=== PATIENT | female | born 1985 | race African-American/Black ===

== ENCOUNTER 2019-08-02 00:39 | Emergency (ER) | payer MEDICAID, OTHER ==
[~2019-08-02] VITALS: Ht 154.9 cm; Wt 111.7 kg
[2019-08-02] MEDS ORDERED: VISCOUS LIDOCAINE 2% 15 ML UDC PO STA (01:40)
[2019-08-02] MEDS ORDERED: MAGNESIUM/ALUMINUM HYDROXIDE/SIMETHICONE 30ML UDC PO STA (01:40)
[2019-08-02 03:17] LABS: BASOPHILS % 1.3 % (0.0-2.0); EOSINOPHILS % 5.9 % (0.0-5.0); HEMOGLOBIN. 11.8 g/dL (12.0-16.0); LYMPHOCYTES % 43.4 % (20.0-50.0); MEAN CORPUSCULAR HEMOGLOBIN 28.2 pg (28.0-32.0); MEAN CORPUSCULAR VOLUME 83.5 fL (81.0-99.0); MEAN PLATELET VOLUME 8.6 fl (7.4-10.4); MONOCYTES % 6.4 % (2.0-8.0); PLATELET 220 x1000/uL (130-400); RED BLOOD CELL COUNT 4.19 mill/uL (4.2-5.4); RED CELL DISTRIBUTION WIDTH 15.4 % (11.6-14.6)
[2019-08-02 03:23] LABS: CHLORIDE 108 mEq/L (98-107)
[2019-08-02 03:36] LABS: CLARITY URINE CLOUDY (CLEAR); COLOR URINE YELLOW (YELLOW); KETONES URINE NEGATIVE (NEGATIVE); LEUKOCYTE ESTERASE URINE NEGATIVE (NEGATIVE); NITRITE URINE NEGATIVE (NEGATIVE); OCCULT BLOOD URINE 3+ (NEGATIVE); PH URINE 5.5 (4.5-8.0); PROTEIN URINE NEGATIVE (NEGATIVE); SPECIFIC GRAVITY URINE 1.012 (1.005-1.030); UROBILINOGEN URINE 0.2 E.U./dL (0.2-1.0)
[2019-08-02 04:54] VITALS: BP 119/69
== END 2019-08-02 04:55 | disposition home or self-care (01) ==
LOC: ER 00:39
DX: G89.29 Other chronic pain (principal); R10.9 Unspecified abdominal pain; E66.9 Obesity, unspecified; Z68.42 Body mass index [BMI] 45.0-49.9, adult
CPT/HCPCS: 36415; 80053; 81003; 81025; 83690; 85025; 99283; Z7610

== ENCOUNTER 2022-03-14 20:25 | Emergency (ER) | payer MEDICAID, OTHER ==
[~2022-03-14] VITALS: Ht 154.9 cm; Wt 110.0 kg
[2022-03-14] MEDS ORDERED: CYCLOBENZAPRINE 10MG TABLET PO ONE (21:30)
[2022-03-14] MEDS ORDERED: KETOROLAC 60MG/2ML VIAL IM ONE ×2 (21:30→22:30)
[2022-03-14] MEDS ORDERED: METH-653 MT (22:10)
[2022-03-14] MEDS ORDERED: IBUP-2029 MT (22:10)
[2022-03-15 00:11] VITALS: BP 133/78
== END 2022-03-15 00:12 | disposition home or self-care (01) ==
LOC: ER 20:25
DX: R68.89 Other general symptoms and signs (principal); Z59.00 Homelessness unspecified; K21.9 Gastro-esophageal reflux disease without esophagitis; Z98.890 Other specified postprocedural states; Z98.51 Tubal ligation status
CPT/HCPCS: 72100; 73030; 96372; 99284; J1885